=== PATIENT | female | born 1995 | race Caucasian/White ===

== ENCOUNTER 2022-04-17 19:18 | Emergency (ER) | payer OTHER ==
[~2022-04-17] VITALS: Ht 165.1 cm; Wt 57.6 kg
[~2022-04-17 19:18] MED LIST: NAPROXEN SODIU550 MG PO
== END 2022-04-17 20:39 | disposition home or self-care (01) ==
LOC: ER 19:18
DX: Z20.6 Contact with and (suspected) exposure to human immunodeficiency virus [HIV] (principal)

== ENCOUNTER 2024-06-15 23:04 | Emergency (ER) | payer OTHER ==
[~2024-06-15] VITALS: Ht 165.1 cm; Wt 59.0 kg
[2024-06-15] MEDS ORDERED: CLONAZEPAM1 MG PO (23:31)
[2024-06-15] MEDS ORDERED: XANAX2 MG PO (23:31)
[2024-06-16] MEDS ORDERED: KETOROLAC TROMETHAMINE 60 MG VIAL IM STA (00:28)
[2024-06-16] MEDS ORDERED: ORPHENADRINE CITRATE 30 MG/ML AMPUL IM STA (00:28)
[2024-06-16] MEDS ORDERED: KETOROLAC TROMETHAMINE 60 MG VIAL IM ONE (00:36)
[2024-06-16] MEDS ORDERED: ORPHENADRINE CITRATE 30 MG/ML AMPUL ONE (00:36)
[2024-06-16] MEDS ORDERED: KETO10TA2 PO (01:51)
[2024-06-16] MEDS ORDERED: NORFLEX100MG PO (01:51)
== END 2024-06-16 02:02 | disposition home or self-care (01) ==
LOC: ER 23:05
DX: S00.93XA Contusion of unspecified part of head, initial encounter (principal); S10.93XA Contusion of unspecified part of neck, initial encounter; S00.83XA Contusion of other part of head, initial encounter; X79.XXXA Intentional self-harm by blunt object, initial encounter; Y93.89 Activity, other specified; Y92.89 Other specified places as the place of occurrence of the external cause; Y99.9 Unspecified external cause status; E03.9 Hypothyroidism, unspecified